=== PATIENT | male | born 1955 | race Caucasian/White ===

== ENCOUNTER 2016-03-06 13:01 | Inpatient (IN) | payer MEDICAID ==
[2016-03-06] MEDS ORDERED: HYDROmorphone 1 MG/ML SYRINGE IVP STA ×2 (13:16→13:57)
[2016-03-06] MEDS ORDERED: SODIUM CHLORIDE 0.9% 1,000 ML IV ONE (13:16)
[2016-03-06] MEDS ORDERED: HYDROmorphone 1 MG/ML SYRINGE ONE ×2 (13:22→13:58)
[2016-03-06] MEDS ORDERED: LORazepam 2 MG/ML SYRINGE IVP STA (14:15)
[2016-03-06] MEDS ORDERED: LORazepam 2 MG/ML SYRINGE ONE (14:17)
[2016-03-06] MEDS ORDERED: AZITHROMYCIN INJ 500 MG in SODIUM CHLORIDE 0.9% 250 ML IV STA (14:39)
[2016-03-06] MEDS ORDERED: cefTRIAXone 2 GM in SODIUM CHLORIDE 0.9% MINIBAG 100 ML IV STA (14:39)
[2016-03-06] MEDS ORDERED: cefTRIAXone 2 GM VIAL ONE (14:46)
[2016-03-06] MEDS ORDERED: IOPAMIDOL-300 100 ML VIAL IVP ONE (14:55)
[2016-03-06] MEDS ORDERED: ONDANSETRON 4 MG/2 ML VIAL IVP PRN (16:47)
[2016-03-06] MEDS ORDERED: ACETAMINOPHEN 325 MG TABLET PO PRN (16:47)
[2016-03-06] MEDS ORDERED: HYDROcod/ACETAM 5/325 MG TABLET PO PRN (16:47)
[2016-03-06] MEDS ORDERED: SODIUM CHLORIDE FLUSH 0.9% 10 ML SYRINGE IVP PRN (16:47)
[2016-03-06] MEDS: SACCHAROMYCES BOULARDII 250 MG CAPSULE PO SCH (17:25)
[2016-03-06] MEDS: SODIUM CHLORIDE 0.9% 1,000 ML IV SCH (17:26)
[2016-03-06] MEDS: SODIUM CHLORIDE FLUSH 0.9% 10 ML SYRINGE IVP SCH (20:09)
[2016-03-06] MEDS: HYDROmorphone 1 MG/ML SYRINGE IVP PRN (21:32)
[2016-03-07] MEDS: IPRATROPIUM/ALBUTEROL 3 ML NEB INH PRN ×3 (00:50→15:56)
[2016-03-07] MEDS: HYDROmorphone 1 MG/ML SYRINGE IVP PRN ×4 (04:38→15:45)
[2016-03-07] MEDS: SODIUM CHLORIDE 0.9% 1,000 ML IV SCH (04:38)
[2016-03-07] MEDS: PANTOPRAZOLE 40 MG TABLET PO SCH ×2 (07:40→08:12)
[2016-03-07] MEDS: SACCHAROMYCES BOULARDII 250 MG CAPSULE PO SCH ×2 (08:08→17:33)
[2016-03-07] MEDS: POLYETHYLENE GLYCOL 3350 17 GM PACKET PO SCH (08:08)
[2016-03-07] MEDS: HYDROcod/ACETAM 10 MG/325 MG TABLET PO PRN ×3 (08:08→22:39)
[2016-03-07] MEDS: ENOXAPARIN 40 MG/0.4 ML SYRINGE SUBQ SCH (08:09)
[2016-03-07] MEDS: SODIUM CHLORIDE FLUSH 0.9% 10 ML SYRINGE IVP SCH ×3 (08:11→22:40)
[2016-03-07] MEDS ORDERED: guaiFENesin/CODEINE 5 ML UDC PO PRN (18:55)
[2016-03-08] MEDS: SODIUM CHLORIDE 0.9% 1,000 ML IV SCH (01:54)
[2016-03-08] MEDS: HYDROmorphone 1 MG/ML SYRINGE IVP PRN ×2 (03:17→08:59)
[2016-03-08] MEDS: IPRATROPIUM/ALBUTEROL 3 ML NEB INH PRN ×2 (03:47→07:49)
[2016-03-08] MEDS: PANTOPRAZOLE 40 MG TABLET PO SCH (06:41)
[2016-03-08] MEDS: SODIUM CHLORIDE FLUSH 0.9% 10 ML SYRINGE IVP SCH (06:41)
[2016-03-08] MEDS: HYDROcod/ACETAM 10 MG/325 MG TABLET PO PRN (08:59)
[2016-03-08] MEDS: ENOXAPARIN 40 MG/0.4 ML SYRINGE SUBQ SCH (08:59)
[2016-03-08] MEDS: POLYETHYLENE GLYCOL 3350 17 GM PACKET PO SCH (08:59)
[2016-03-08] MEDS: SACCHAROMYCES BOULARDII 250 MG CAPSULE PO SCH (08:59)
== END 2016-03-08 13:08 | disposition home or self-care (01) | DRG 871 ==
DX: A40.3 Sepsis due to Streptococcus pneumoniae (principal); J18.9 Pneumonia, unspecified organism; J45.901 Unspecified asthma with (acute) exacerbation; F17.210 Nicotine dependence, cigarettes, uncomplicated; Z86.19 Personal history of other infectious and parasitic diseases; Z79.82 Long term (current) use of aspirin; Z79.899 Other long term (current) drug therapy; Z96.651 Presence of right artificial knee joint

== ENCOUNTER 2016-11-09 12:20 | Emergency (ER) | payer MEDICAID ==
--- NOTE | 2016-11-09 13:34 | ED Physician Documentation ---
PD HPI LOWER EXT INJURY - Stated complaint Stated Complaint: L KNEE INJURY - Chief complaint Chief Complaint: Ext Problem - History obtained from History obtained from: Patient - History of Present Illness PD HPI LOW EXT INJURY LOCATION: Left, Knee Type of injury: Fall Where injury occurred: Home Timing - onset: How many days ago (2) Timing - duration: Days (2) Timing - details: Abrupt onset Pain level max: 8 Pain level now: 8 Improved by: Rest, Ice, Immobilization Worsened by: Moving, Palpating Associated symptoms: Swelling. No: Weakness, Numbness, Tingling Contributing factors: Prior ortho surgery (B TKR) Similar symptoms before: Has not had sx before Recently seen: Not recently seen - Treatment prior to arrival Treatment prior to arrival: tripped and fell on a driveway 2 days ago onto the L knee Review of Systems Constitutional: denies: Fever, Chills Ears: denies: Ear pain Nose: denies: Rhinorrhea / runny nose, Congestion Throat: denies: Sore throat Respiratory: denies: Cough GI: denies: Nausea, Vomiting, Diarrhea Skin: denies: Rash Musculoskeletal: denies: Neck pain, Back pain PD PAST MEDICAL HISTORY - Past Medical History Past Medical History: Yes Cardiovascular: None Respiratory: Asthma, Pneumonia Neuro: None Endocrine/Autoimmune: None GI: None : None, Kidney stones HEENT: None Psych: None Musculoskeletal: Osteoarthritis, Chronic back pain Derm: Eczema, Other - Past Surgical History Past Surgical History: Yes General: Cholecystectomy, Other Ortho: Knee replacement, Rotator cuff repair, Arthroscopic surgery HEENT: Tonsil/Adenoidectomy - Present Medications Home Medications: Ambulatory Orders Medication Instructions Recorded Confirmed Hydrocodone/Acetaminophen 1 - 2 each PO Q6H PRN #10 tablet 11/09/16 [Hydrocodon-Acetaminophen 5-325] - Allergies Allergies/Adverse Reactions: Allergies Allergy/AdvReac Type Severity Reaction Status Date / Time Penicillins AdvReac Intermediate INJECTION Verified 11/09/16 12:32 SITE BOIL - Social History Does the pt smoke?: Yes Smoking Status: Current every day smoker Does the pt drink ETOH?: Yes Does the pt have substance abuse?: Yes Substance Use and Type: Marijuana - Immunizations Immunizations are current?: Yes - POLST Patient has POLST: No PD ED PE NORMAL - Vitals Vital signs reviewed: Yes - General General: Alert and oriented X 3 - HEENT HEENT: Atraumatic, PERRL, Moist mucous membranes - Neck Neck: Supple, no meningeal sign, No bony TTP - Back Back: No spinal TTP - Derm Derm: Warm and dry - Extremities Extremities: Other (R knee - diffusely enlarged. no tenderness. no redness. no effusion. L knee - swelling, effusion, TTP over the patella. Limited ROM 2/2 pain. NVI B.) - Neuro Neuro: Alert and oriented X 3 - Psych Psych: Normal mood, Normal affect Results - Vitals Vitals: Vital Signs - 24 hr 11/09/16 11/09/16 12:29 13:47 Temperature 37.4 C 36.9 C Heart Rate 83 78 Respiratory 14 16 Rate Blood Pressure 132/82 H 130/82 H O2 Saturation 99 99 Oxygen O2 Source [With Activity] Room air O2 Source [Without Activity] Room air O2 Source Room air - Rads (name of study) B knee xray Radiology: Prelim report reviewed, See rad report (Acute transverse minimally distracted and nondisplaced fracture through the superior patella. 2. Postoperative changes from bilateral total knee arthroplasty. The right prosthesis has been replaced with cement and radiopaque spacer. 3. Small bilateral joint effusions. ) PD MEDICAL DECISION MAKING - ED course Complexity details: reviewed results, re-evaluated patient, considered differential, d/w patient, d/w family ED course: Patient is a 61-year-old male who presents to the emergency department with bilateral knee pain, left greater than right after a fall several days ago. Found to have a acute transverse patellar fracture of the left knee. Placed in a knee immobilizer for a splint. We will have him follow-up with orthopedics. He has a walker at home that he will use to get around at home. Patient counseled regarding signs and symptoms for which I believe and urgent re- evaluation would be necessary. Patient with good understanding of and agreement to plan and is comfortable going home at this time This document was made in part using voice recognition software. While efforts are made to proofread this document, sound alike and grammatical errors may occur. Departure - Departure Disposition: 01 Home, Self Care Clinical Impression: Patellar fracture Qualifiers: Encounter type: initial encounter Fracture type: closed Fracture morphology: transverse Fracture alignment: nondisplaced Laterality: left Qualified Code(s): S82.035A - Nondisplaced transverse fracture of left patella, initial encounter for closed fracture Condition: Good Instructions: ED Fx Patella Follow-Up: [facility] [Provider Group] - Within 1 week Afsaneh Leone ARNP [Primary Care Provider] - Within 1 week Prescriptions: Hydrocodone/Acetaminophen [Hydrocodon-Acetaminophen 5-325] 1 - 2 each PO Q6H PRN #10 tablet PRN Reason: pain Comments: You need to wear the knee immobilizer at home until released by your doctor or orthopedics. Do not drink alcohol or drive while on narcotic pain medicine. Note that many narcotic pain relievers also contain tylenol/acetaminophen. Please ensure that your total dose of acetaminophen from all sources does not exceed 3 grams (3000mg) per day. You may constipated on this medication, take a stool softener such as "Colace" twice a day while you are on it. Also recommend a ksrx-fwn-eimfzkq laxative such as senna or MiraLAX any day that you do not have a bowel movement. If you received narcotic pain medication in the emergency department, do not drive or operate machinery for the next 24 hours. Your blood pressure was elevated today on check in to the emergency department. This does not mean that you have hypertension, it is a common phenomenon to check into the emergency department and have elevated blood pressure. I recommend that you see your primary care physician within the week to have it rechecked when you're feeling better. Discharge Date/Time: 11/09/16 14:00
[2016-11-09] MEDS ORDERED: HYDROcod/ACETAM 5/325 MG TABLET PO STA (13:47)
--- NOTE | 2016-11-09 13:47 | XRAY Preliminary Report ---
Exam: XR Knee 2 View BILAT IMPRESSION: 1. Acute transverse minimally distracted and nondisplaced fracture through the superior patella. 2. Postoperative changes from bilateral total knee arthroplasty. The right prosthesis has been replac ed with cement and radiopaque spacer. 3. Small bilateral joint effusions. [facility] SITE ID: [id number]
[2016-11-09 13:49] VITALS: BP 130/82
--- NOTE | 2016-11-09 13:49 | XRAY Report ---
EXAMS: 1. Right Knee Radiography 2. Left Knee Radiography EXAM DATE:11/09/2016 01:09 PM. CLINICAL HISTORY:Injury non weightbearing. COMPARISON: 07/17/2014 and 07/19/2012. TECHNIQUE: 2 views each. FINDINGS: Right Knee: Bones: No acute fracture is seen. Joints: Postoperative changes from prior total knee arthroplasty are noted. Previously seen prosthesi s has been removed and replaced with cement. A radiopaque spacer is present in the knee joint. Joint effusion is noted. Soft Tissues: Anterior soft tissue swelling is seen. Left Knee: Bones: There is an acute minimally distracted, but nondisplaced transverse fracture through the super ior patella near the junction of the upper and middle thirds. Joints: Postoperative changes are present from a three-part total knee arthroplasty. Small joint effu gilberto. Soft Tissues: Anterior soft tissue swelling. IMPRESSION: 1. Acute transverse minimally distracted and nondisplaced fracture through the superior patella. 2. Postoperative changes from bilateral total knee arthroplasty. The right prosthesis has been replac ed with cement and radiopaque spacer. 3. Small bilateral joint effusions. [facility] Referring Provider Line: [phone] SITE ID: [id number]
[2016-11-09] MEDS ORDERED: HYDROcod/ACETAM 5/325 MG TABLET ONE (14:00)
== END 2016-11-09 14:00 | disposition home or self-care (01) ==
LOC: ED 12:20
DX: S82.035A Nondisplaced transverse fracture of left patella, initial encounter for closed fracture (principal); Z96.659 Presence of unspecified artificial knee joint; W01.0XXA Fall on same level from slipping, tripping and stumbling without subsequent striking against object, initial encounter; Y92.008 Other place in unspecified non-institutional (private) residence as the place of occurrence of the external cause; F17.200 Nicotine dependence, unspecified, uncomplicated
CPT/HCPCS: 29530; 73565; 99283; 99284; A9270

== ENCOUNTER 2018-04-04 09:24 | Emergency (ER) | payer MEDICAID ==
[2018-04-04 11:59] LABS: BASOPHILS # (AUTO) 0.1 10^3/uL (0.0-0.1); BASOPHILS % (AUTO) 0.6 %; EOSINOPHILS # (AUTO) 0.3 10^3/uL (0.0-0.7); EOSINOPHILS % (AUTO) 2.7 %; HGB - HEMOGLOBIN 13.9 g/dL (14.0-18.0); LYMPHOCYTES # (AUTO) 1.7 10^3/uL (1.5-3.5); LYMPHOCYTES % (AUTO) 16.9 %; MEAN CORPUSCULAR HEMOGLOBIN 27.8 pg (27.0-31.0); MEAN CORPUSCULAR HGB CONC 33.1 g/dL (32.0-36.0); MEAN PLATELET VOLUME 6.6 fL (7.4-11.4); MONOCYTES # (AUTO) 1.1 10^3/uL (0.0-1.0); MONOCYTES % (AUTO) 11.3 %; NEUTROPHILS # (AUTO) 6.9 10^3/uL (1.5-6.6); NEUTROPHILS % (AUTO) 68.5 %; PLT - PLATELET COUNT 401 10^3/uL (130-450); RED BLOOD COUNT 5.01 10^6/uL (4.70-6.10); RED CELL DISTRIBUTION WIDTH 14.4 % (12.0-15.0); WHITE BLOOD COUNT 10.1 x10^3/uL (4.8-10.8)
[2018-04-04] MEDS ORDERED: LIDOCAINE 1%-EPI 1:100000 30 ML MDV SUBQ STA (12:17)
[2018-04-04] MEDS ORDERED: CLINDAMYCIN 900 MG/50 ML 50 ML IV ONE (12:41)
--- NOTE | 2018-04-04 12:44 | ED Physician Documentation ---
PD HPI LOWER EXT INJURY - Stated complaint Stated Complaint: KNEE INFECTION - Chief complaint Chief Complaint: Ext Problem - History obtained from History obtained from: Patient - History of Present Illness PD HPI LOW EXT INJURY LOCATION: Right, Knee Associated symptoms: Swelling Recently seen: Not recently seen - Additional information Additional information: The patient is an unfortunate 62-year-old male, as status post right knee replacement in November 2013, who experienced postoperative infection for which he underwent spacer placement with antibiotic ball in March 2014, with removal of the cement spacer and incision and drainage in June 2014, and subsequent administration of long-term antibiotic therapy through a PICC line that was placed in November 2014. Since that time he has been in [place] where he underwent another placement of cement spacer at [facility]. His last surgical procedure was about 7-1/2 months ago. He presents today because of persistent swelling of his right knee with associated warmth and pain. He is staying with his daughter, who is convinced him to seek further medical treatment. He denies fever or shortness of breath. Review of his microbiology reports reveal that Pseudomonas aeruginosa was cultured from synovial fluid in 2013, but cultures of synovial fluid in 2014 were negative. 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 Review of Systems Constitutional: denies: Fever Nose: denies: Congestion Throat: denies: Sore throat Cardiac: denies: Chest pain / pressure Respiratory: reports: Cough (Chronic smoker's cough.). denies: Dyspnea GI: denies: Abdominal Pain, Vomiting : denies: Dysuria Skin: denies: Rash Musculoskeletal: reports: Joint pain (Right knee.), Joint swelling (Right knee.) Neurologic: denies: Focal weakness, Headache PD PAST MEDICAL HISTORY - Past Medical History Past Medical History: Yes Cardiovascular: None Respiratory: Asthma, Pneumonia Neuro: None Endocrine/Autoimmune: None GI: None : Kidney stones HEENT: Chronic vision loss Psych: None Musculoskeletal: Osteoarthritis, Chronic back pain Derm: Eczema, Other - Past Surgical History Past Surgical History: Yes General: Cholecystectomy, Other Ortho: Knee replacement, Rotator cuff repair, Arthroscopic surgery HEENT: Tonsil/Adenoidectomy - Present Medications Home Medications: Ambulatory Orders Medication Instructions Recorded Confirmed Hydrocodone/Acetaminophen 1 - 2 each PO Q6H PRN #10 tablet 11/09/16 [Hydrocodon-Acetaminophen 5-325] Doxycycline Hyclate 100 mg PO BID #20 capsule 04/04/18 - Allergies Allergies/Adverse Reactions: Allergies Allergy/AdvReac Type Severity Reaction Status Date / Time Penicillins AdvReac Intermediate INJECTION Verified 04/04/18 09:43 SITE BOIL - Social History Does the pt smoke?: Yes Smoking Status: Current every day smoker Does the pt drink ETOH?: Yes ETOH Use: Wine Does the pt have substance abuse?: No Substance Use and Type: Marijuana - Immunizations Immunizations are current?: Yes - POLST Patient has POLST: No PD ED PE NORMAL - Vitals Vital signs reviewed: Yes (Initially hypertensive.) - General General: Alert and oriented X 3, Well developed/nourished - HEENT HEENT: Atraumatic - Neck Neck: No adenopathy, No JVD - Cardiac Cardiac: RRR - Respiratory Respiratory: Clear bilaterally - Abdomen Abdomen: Soft, Non tender - Back Back: No CVA TTP - Derm Derm: No rash - Extremities Extremities: No edema, No calf tenderness / cord, Other (There is a large effusion of the right knee, with associated diffuse tenderness to palpation. There is no erythema or significant warmth to palpation. He can fully extend the knee, and can flex to 90, although flexion exacerbates his discomfort. Distal neurovascular is intact except for mild light touch sensory deficit anteriorly, consistent with repeated knee surgeries.) - Neuro Neuro: Alert and oriented X 3, No motor deficit Results - Vitals Vitals: Vital Signs - 24 hr 04/04/18 04/04/18 04/04/18 11:56 13:52 15:15 Temperature Heart Rate 98 77 76 Respiratory 17 20 20 Rate Blood Pressure 119/85 H 99/85 H 127/81 H O2 Saturation 98 98 97 04/04/18 15:17 Temperature 36.7 C Heart Rate Respiratory Rate Blood Pressure O2 Saturation Oxygen O2 Source [With Activity] Room air O2 Source [Without Activity] Room air O2 Source Room air - Labs Labs: Microbiology 04/04/18 12:35 Body Fluid Culture - Preliminary Synovial Fluid Laboratory Tests 04/04/18 04/04/18 04/04/18 10:40 10:40 10:40 WBC 10.1 RBC 5.01 Hgb 13.9 L Hct 42.0 MCV 84.0 MCH 27.8 MCHC 33.1 RDW 14.4 Plt Count 401 MPV 6.6 L Neut # (Auto) 6.9 H Lymph # (Auto) 1.7 Meigs # (Auto) 1.1 H Eos # (Auto) 0.3 Baso # (Auto) 0.1 Absolute Nucleated RBC 0.01 Nucleated RBC % 0.1 ESR 26 H C-Reactive Protein 3.9 H Fluid Source Fluid Color Fluid Clarity Fluid WBC Fluid RBC Fluid Neutrophils % Fluid Lymphocytes % Fluid Monocytes % Fluid Macrophages % 04/04/18 12:35 WBC RBC Hgb Hct MCV MCH MCHC RDW Plt Count MPV Neut # (Auto) Lymph # (Auto) Meigs # (Auto) Eos # (Auto) Baso # (Auto) Absolute Nucleated RBC Nucleated RBC % ESR C-Reactive Protein Fluid Source SYNOVIAL Fluid Color PINK Fluid Clarity CLOUDY Fluid WBC 54695 Fluid RBC < 1000 Fluid Neutrophils % 94 Fluid Lymphocytes % 3 Fluid Monocytes % 2 Fluid Macrophages % 1 Procedures - Arthrocentesis Joint: Knee (right) Preparation: Sterile prep and drape Anesthesia: Lidocaine 1% Fluid: Sent for cell count, Cloudy, Sent for culture, Fluid obtained - cc (90 mL), Sent for glucose, Sent for gram stain, Sent for protein Aftercare: Dressing applied, No complications, Patient tolerated well PD MEDICAL DECISION MAKING - ED course Complexity details: reviewed old records, reviewed results, re-evaluated patient, considered differential, d/w patient, d/w family, d/w acquisition consultant ED course: The patient's presentation is significant for a right knee effusion in a joint that has undergone repeated surgical intervention for postoperative infection. It is uncertain whether the current effusion is an inflammatory effusion or a low-grade chronic infection. The patient does not appear septic, in the knee is not hot or erythematous. Treatment in the emergency department included arthrocentesis, with removal of 90 mL of cloudy synovial fluid. Microscopic analysis reveals a white blood cell count of 81,246 with 94% neutrophils, 3% lymphocytes, and 2% monocytes. Culture and sensitivity are pending. C-reactive protein and erythrocyte sedimentation rate are mildly elevated at 3.9 and 26. CBC reveals a normal white blood cell count of 10.0. Clindamycin 900 mg was administered IV. I discussed his presentation with Dr. Welsh who is on-call for orthopedic surgery. He advised that this type of long-term postoperative joint complication would need to be managed in a facility with more extensive treatment capability. I discussed his condition with Dr. Haynes, keyboard action assembler for Dr. Stanley at [facility] orthopedics. She arranged for the patient to be seen by Dr. Stanley in one week. She advised that in the interim he be treated with doxycycline. The patient felt much improvement after arthrocentesis. He is being discharged with prescription for doxycycline. I discussed with him and his daughter the importance of outpatient orthopedic follow-up, as well as potentially worrisome signs or symptoms that should prompt reevaluation in the emergency department. Departure - Departure Disposition: Home, Self Care Clinical Impression: Knee effusion, right Condition: Stable Instructions: ED Effusion Knee Follow-Up: [facility] [Provider Group] Kwabena Stanley DO [Physician No Access] - Prescriptions: Doxycycline Hyclate 100 mg PO BID #20 capsule Comments: Take doxycycline twice daily as prescribed. You can use ibuprofen, up to 800 mg 3 times daily for its anti-inflammatory effect. Follow-up with orthopedics next Wednesday. Your appointment time with Dr. Stanley is at 10 AM. They would like you to arrive at 930 for x-rays. The location is at [address] [place] [address] in [place]. The phone number is [phone]. If you have any records from [facility] please bring them with you to the appointment. Return to the emergency department if you develop any significant worsening of symptoms. Discharge Date/Time: 04/04/18 15:48
[2018-04-04 14:41] LABS: CC,BF RBC < 1000 /mm^3; LYMPHOCYTES %,BODY FLUID 3; MACROPHAGES %,BODY FLUID 1 %; MONOCYTES %,BODY FLUID 2 %
[2018-04-04 14:42] LABS: BF COLOR PINK; BF SOURCE SYNOVIAL
[2018-04-04 15:17] VITALS: BP 127/81
== END 2018-04-04 15:48 | disposition home or self-care (01) ==
LOC: ED 09:24
DX: M25.461 Effusion, right knee (principal); F17.200 Nicotine dependence, unspecified, uncomplicated; Z96.651 Presence of right artificial knee joint
CPT/HCPCS: 20610; 36415; 81599; 82945; 84157; 85025; 85651; 86140; 87070; 87077; 87181; 87205; 89051; 96365; 99283